=== PATIENT | male | born 1945 | race Caucasian/White ===

== ENCOUNTER 2019-04-17 09:03 | Emergency (ER) | payer OTHER ==
[~2019-04-17] VITALS: Ht 172.7 cm; Wt 86.2 kg
--- NOTE | 2019-04-17 10:04 | Diagnostic Imaging Report ---
LOWER LEG LEFT - 2 views HISTORY: Pain. Left anterior meadows laceration with a chain saw. Pain in the left lower anterior ankle. COMPARISON: None available. FINDINGS: Bones: No acute displaced fracture. Osseous alignment is within normal limits. Joints: The joint spaces are well-maintained. Soft tissues: Mild soft tissue swelling around the medial aspect of the left calf. Several soft tissue phleboliths. IMPRESSION: Mild soft tissue swelling around the medial aspect of the left calf. No osseous injury. No abnormal foreign bodies. Signed by: Dr. Andrés Hoskins M.D. on 04/17/2019 10:00 AM
[2019-04-17] MEDS ORDERED: BACITRACIN ZINC 0.9GM TP ONE (10:37)
[2019-04-17 11:07] VITALS: BP 123/72
== END 2019-04-17 11:22 | disposition home or self-care (01) ==
LOC: ER 09:03
DX: S81.812A Laceration without foreign body, left lower leg, initial encounter (principal); W29.3XXA Contact with powered garden and outdoor hand tools and machinery, initial encounter; Y92.008 Other place in unspecified non-institutional (private) residence as the place of occurrence of the external cause; I10 Essential (primary) hypertension; Z85.46 Personal history of malignant neoplasm of prostate
CPT/HCPCS: 99283